=== PATIENT | female | born 1970 | race Hispanic/Latino ===

== ENCOUNTER 2020-02-26 02:00 | Emergency (ER) | payer OTHER ==
[~2020-02-26] VITALS: Ht 165.1 cm; Wt 95.3 kg
[~2020-02-26 02:00] MED LIST: LISINOPRIL10 MG PO; SYNTHROID100 MCG PO
[2020-02-26] MEDS ORDERED: DONNATAL/LIDOCAINE/MAALOX 30 ML SUSP PO STA (02:16)
[2020-02-26] MEDS ORDERED: MAGNESIUM/ALUMINUM/SIMETHICONE 30 ML UDC ONE (02:23)
[2020-02-26] MEDS ORDERED: LIDOCAINE VISC 2% SOLN 15 ML UDC ONE (02:23)
[2020-02-26] MEDS ORDERED: BELLADONNA ALK/PHENOBARBITAL 5 ML UDC ONE (02:23)
[2020-02-26] MEDS ORDERED: KETOROLAC TROMETHAMINE 60 MG/2 ML VIAL ONE (02:24)
[2020-02-26] MEDS ORDERED: KETOROLAC TROMETHAMINE 60 MG/2 ML VIAL IM ONE (02:30)
[2020-02-26] MEDS ORDERED: PROTONIX40 MG PO (02:51)
[2020-02-26] MEDS ORDERED: MAALOX MAXIMUM355 ML PO (02:51)
== END 2020-02-26 03:07 | disposition home or self-care (01) ==
LOC: FSED 02:00
DX: R10.13 Epigastric pain (principal); K29.00 Acute gastritis without bleeding
CPT/HCPCS: 99283; J1885

== ENCOUNTER 2020-05-31 21:49 | Emergency (ER) | payer OTHER ==
[~2020-05-31] VITALS: Ht 165.1 cm; Wt 95.3 kg
[~2020-05-31 21:49] MED LIST changes: +MAALOX MAXIMUM355 ML PO; +PROTONIX40 MG PO
[2020-05-31] MEDS ORDERED: KETOROLAC TROMETHAMINE 30 MG/ML VIAL IV STA (22:10)
[2020-05-31] MEDS ORDERED: ONDANSETRON HCL INJ 2MG/ML 2ML 2 MG/ML VIAL IV STA (22:10)
[2020-05-31] MEDS ORDERED: SODIUM CHLORIDE 0.9% 1000ML 1,000 ML IV SCH (22:15)
[2020-05-31] MEDS ORDERED: ONDANSETRON HCL INJ 2MG/ML 2ML 2 MG/ML VIAL ONE (22:23)
[2020-05-31] MEDS ORDERED: KETOROLAC TROMETHAMINE 30 MG/ML VIAL ONE (22:24)
[2020-05-31] MEDS ORDERED: SODIUM CHLORIDE 0.9% 1000ML 1,000 ML ONE (22:24)
[2020-05-31] MEDS ORDERED: NAPROSYN500 MG PO (23:08)
[2020-05-31] MEDS ORDERED: ULTRAM50 MG PO (23:08)
[2020-05-31] MEDS ORDERED: CYCLOBENZAPRINE5 MG PO (23:08)
[2020-05-31] MEDS ORDERED: FENTANYL CITRATE/PF 100MCG/2 ML INJ IV ONE (23:15)
--- NOTE | 2020-05-31 23:18 | Emergency Department Note ---
History of Present Illnes History of Present Illness Chief Complaint: Flank Pain History of Present Illness This is a 49 year old female . Historian: Patient Arrival Mode: Car Cbx Operator Required: No Onset (how long ago): day(s) (1 day sudden onset of left flank pain) Radiation: Reports flank Severity: moderate Onset quality: sudden Duration (how long): day(s) Timing of current episode: constant Progression: unchanged Chronicity: new Context: Denies recent illness, Denies recent surgery, Denies recent immobilization, Denies recent travel, Denies trauma/injury, Denies new medications, Denies hx of DVT/PE, Denies non-compliance w/ medications, Denies other Relieving factors: none Exacerbating factors: other (sitting) Associated symptoms: Denies denies other symptoms, Denies confusion, Denies chest pain, Denies cough, Denies diaphoresis, Denies fever/chills, Denies headaches, Denies loss of appetite, Denies malaise, Denies nausea/vomiting, Denies rash, Denies seizure, Denies shortness of breath, Denies syncope, Denies weakness, Denies other Treatments prior to arrival: none Past Medical/Family History Physician Review I have reviewed the patient's past medical and family history. Any updates have been documented here. Past Medical History Recent Fever: No Clinical Suspicion of Infectio: No New/Unexplained Change in Ment: No Past Medical History: Hypothyroidism Other Surgery: COMPLETE THYROIDECTOMY Social History Smoking Cessation: Current every day smoker Any Illegal Drug Use: No Other Last Tetanus: UNK Review of Systems Review of Systems Constitutional: Denies no symptoms, Denies as per HPI, Denies chills, Denies diaphoresis, Denies fever, Denies malaise, Denies weakness, Denies other Gastrointestinal: Reports as per HPI Musculoskeletal: Reports back pain Review of other systems: All other systems negative Physical Exam Related Data Allergies: Coded Allergies: morphine (Verified Adverse Reaction, Unknown, ITCHING, 02/26/20) Vital signs reviewed: Yes Physical Exam CONSTITUTIONAL Constitutional: Present well-developed, Present well-nourished, Present obese, Present distressed HENT HENT: Present normocephalic EYES Eyes: Reports conjunctivae normal NECK Neck: Present supple PULMONARY Pulmonary: Present breath sounds normal CARDIOVASCULAR Cardiovascular: Present regular rhythm GASTROINTESTINAL Abdominal: Present soft GENITOURINARY SKIN Skin: Present warm MUSCULOSKELETAL Musculoskeletal: Present ROM normal NEUROLOGICAL Neurological: Present alert, Present oriented x 3 PSYCHOLOGICAL Psychological: Present mood/affect normal Results Laboratory Lab results reviewed: Yes Laboratory comments CBC, CMP, UA and UPT were normal Imaging Imaging results reviewed: Yes Impressions EXAM: CT Abdomen and Pelvis WITHOUT contrast INDICATION: Pain. COMPARISON: None. TECHNIQUE: Abdomen and pelvis were scanned utilizing a multidetector helical scanner from the lung base to the pubic symphysis without administration of IV contrast. Absence of intravenous contrast decreases sensitivity for detection of focal lesions and vascular pathology. Coronal and sagittal reformations were obtained. Routine protocol was performed. IV CONTRAST: None. ORAL CONTRAST: Water RADIATION DOSE: Total DLP: 818.73 mGy*cm Estimated effective dose: (DLP x 0.015 x size factor) mSv COMPLICATIONS: None FINDINGS: LINES and TUBES: None. LOWER THORAX: Unremarkable HEPATOBILIARY: The liver is diffuse hypodense compared to the spleen, consistent with diffuse hepatic diffuse hepatic steatosis. No focal hepatic lesions. No biliary ductal dilation. GALLBLADDER: No radio-opaque stones or sludge. No wall thickening. SPLEEN: No splenomegaly. PANCREAS: No focal masses or ductal dilatation. ADRENALS: No right adrenal nodules. 2.8 centimeters lipid rich left adrenal adenoma. KIDNEYS/URETERS: No hydronephrosis. 2.1 cm cyst in the posterior lower pole of the right kidney. No stones. GI TRACT: No abnormal distention, wall thickening, or evidence of bowel obstruction. Appendix is normal. PELVIC ORGANS/BLADDER: 5.9 x 4.5 cm low-attenuation lesion in the left adnexa suggestive of a left ovarian cyst; most likely fat stranding. LYMPH NODES: No lymphadenopathy. VESSELS: Unremarkable. PERITONEUM / RETROPERITONEUM: No free air or fluid. BONES: Degenerative disc disease at L3-L4. Bilateral L3 spondylolysis with grade 1 anterolisthesis of L3 in relation to L4. SOFT TISSUES: Unremarkable. IMPRESSION: 1. 5.9 cm simple appearing cyst in the left adnexa/ovary. Recommend follow-up ultrasound of pelvis in 6-8 weeks to document resolution. 2. Degenerative disc disease at L3-L4. Bilateral L3 spondylolysis with grade 1 anterolisthesis of L3 in relation to L4. 3. Left adrenal lipid rich adenoma. Signed by: Dr. Jovanny Dhillon M.D. on 05/31/2020 11:49 PM Assessment & Plan Medical Decision Making MDM stone, pyelo, cyst, back pain, DDD, AAA Reassessment Reassessment Pt has no LLQ pain no rebound pain is in the back and itw worse with sitting down which points to DDD or Herniation Assessment & Plan Final Impression: (1) Back pain (2) DDD (degenerative disc disease) (3) Ovarian cyst (4) Kidney cysts Depart Disposition: HOME, SELF-[facility] Meds Active Scripts Prednisone (PREDNISONE) 20 Mg Tab, 20 MG PO TID for 5 Days, #15 TAB Prov:DEEJAY DE LA CRUZ MD 06/01/20 Tramadol Hcl (ULTRAM) 50 Mg Tablet, 50 MG PO TID PRN for pain for 4 Days, #12 TAB Prov:DEEJAY DE LA CRUZ MD 05/31/20 Cyclobenzaprine Hcl (FLEXERIL) 5 Mg Tablet, 10 MG PO TID PRN for pain for 5 Days, #15 Prov:DEEJAY DE LA CRUZ MD 05/31/20 Naproxen (NAPROSYN) 500 Mg Tablet, 500 MG PO BID for 7 Days, #15 TAB Prov:DEEJAY DE LA CRUZ MD 05/31/20 Mag Hydrox/Al Hydrox/Simeth (MAALOX MAXIMUM STRENGTH SUSP) 355 Ml Oral.susp, 30 ML PO Q4HR PRN for pain for 3 Days, #540 ML Prov:ANSLEY HALEY 02/26/20 Pantoprazole Sodium (PROTONIX) 40 Mg Suspdr.pkt, 40 MG PO DAILY, #30 TAB Prov:ANSLEY HALEY 02/26/20 Reported Medications Levothyroxine Sodium (SYNTHROID) 100 Mcg Tab, 100 MCG PO 0600, #30 TAB 01/19/17 Lisinopril (LISINOPRIL) 10 Mg Tablet, 10 MG PO DAILY, #30 TAB 01/19/17 DEEJAY DE LA CRUZ MD May 31, 2020 22:14
[2020-05-31] MEDS ORDERED: FENTANYL CITRATE/PF 100MCG/2 ML INJ ONE (23:31)
--- NOTE | 2020-05-31 23:53 | Diagnostic Imaging Report ---
EXAM: CT Abdomen and Pelvis WITHOUT contrast INDICATION: Pain. COMPARISON: None. TECHNIQUE: Abdomen and pelvis were scanned utilizing a multidetector helical scanner from the lung base to the pubic symphysis without administration of IV contrast. Absence of intravenous contrast decreases sensitivity for detection of focal lesions and vascular pathology. Coronal and sagittal reformations were obtained. Routine protocol was performed. IV CONTRAST: None. ORAL CONTRAST: Water RADIATION DOSE: Total DLP: 818.73 mGy*cm Estimated effective dose: (DLP x 0.015 x size factor) mSv COMPLICATIONS: None FINDINGS: LINES and TUBES: None. LOWER THORAX: Unremarkable HEPATOBILIARY: The liver is diffuse hypodense compared to the spleen, consistent with diffuse hepatic diffuse hepatic steatosis. No focal hepatic lesions. No biliary ductal dilation. GALLBLADDER: No radio-opaque stones or sludge. No wall thickening. SPLEEN: No splenomegaly. PANCREAS: No focal masses or ductal dilatation. ADRENALS: No right adrenal nodules. 2.8 centimeters lipid rich left adrenal adenoma. KIDNEYS/URETERS: No hydronephrosis. 2.1 cm cyst in the posterior lower pole of the right kidney. No stones. GI TRACT: No abnormal distention, wall thickening, or evidence of bowel obstruction. Appendix is normal. PELVIC ORGANS/BLADDER: 5.9 x 4.5 cm low-attenuation lesion in the left adnexa suggestive of a left ovarian cyst; most likely fat stranding. LYMPH NODES: No lymphadenopathy. VESSELS: Unremarkable. PERITONEUM / RETROPERITONEUM: No free air or fluid. BONES: Degenerative disc disease at L3-L4. Bilateral L3 spondylolysis with grade 1 anterolisthesis of L3 in relation to L4. SOFT TISSUES: Unremarkable. IMPRESSION: 1. 5.9 cm simple appearing cyst in the left adnexa/ovary. Recommend follow-up ultrasound of pelvis in 6-8 weeks to document resolution. 2. Degenerative disc disease at L3-L4. Bilateral L3 spondylolysis with grade 1 anterolisthesis of L3 in relation to L4. 3. Left adrenal lipid rich adenoma. Signed by: Dr. Jovanny Dhillon M.D. on 05/31/2020 11:49 PM
[2020-06-01] MEDS ORDERED: PREDNISONE20 MG PO (00:16)
== END 2020-06-01 00:22 | disposition home or self-care (01) ==
LOC: FSED 22:15
DX: M51.36 Other intervertebral disc degeneration, lumbar region (principal); N83.202 Unspecified ovarian cyst, left side; N28.1 Cyst of kidney, acquired; E03.9 Hypothyroidism, unspecified; F17.210 Nicotine dependence, cigarettes, uncomplicated
CPT/HCPCS: 74176; 80053; 81003; 81025; 85025; 99284; J1885; J2405; J3010; J7030

== ENCOUNTER 2025-06-22 19:51 | Emergency (ER) | payer SELFPAY ==
[~2025-06-22] VITALS: Ht 165.1 cm; Wt 92.5 kg
[~2025-06-22 19:51] MED LIST changes: +CYCLOBENZAPRINE5 MG PO; +NAPROSYN500 MG PO; +PREDNISONE20 MG PO; +ULTRAM50 MG PO
[2025-06-22] MEDS ORDERED: METRONIDAZOLE500 MG PO (21:37)
[2025-06-22] MEDS ORDERED: LEVOTHYROXINE88 MCG PO (21:37)
[2025-06-22] MEDS ORDERED: DOXYCYCLINE HY100 MG PO (21:37)
[2025-06-22] MEDS ORDERED: IBUPROFEN600 MG PO (21:37)
[2025-06-22] MEDS: FAMOTIDINE 20 MG/2 ML VIAL IV ONE (21:42)
[2025-06-22] MEDS: LACTATED RINGER'S 1,000 ML INJ ONE (21:42)
[2025-06-22] MEDS: DOXYCYCLINE HYCLATE TABLET 100 MG TAB PO ONE (21:43)
[2025-06-22] MEDS: KETOROLAC TROMETHAMINE 30 MG/ML VIAL IV ONE (21:43)
[2025-06-22] MEDS: ACETAMINOPHEN 325 MG TAB PO ONE (21:43)
[2025-06-22] MEDS ORDERED: CEFDINIR300 MG PO (22:50)
[2025-06-22 23:10] VITALS: PULSE 63; RESP 15; TEMP 97.9
[2025-06-22 23:11] VITALS: BP 142/96; PULSE 63; RESP 15; TEMP 97.9; O2SAT 97
== END 2025-06-22 23:10 | disposition home or self-care (01) ==
LOC: FSED 20:09
DX: L03.032 Cellulitis of left toe (principal); N39.0 Urinary tract infection, site not specified; R21 Rash and other nonspecific skin eruption; E03.9 Hypothyroidism, unspecified; F17.210 Nicotine dependence, cigarettes, uncomplicated
CPT/HCPCS: 10060; 80053; 81003; 85025; 96374; 96375; 99284; J0696; J1308; J1885; J7121